=== PATIENT | female | born 1995 | race Caucasian/White ===

== ENCOUNTER 2017-03-06 19:40 | Emergency (ER) | payer OTHER ==
[~2017-03-06] VITALS: Ht 167.6 cm; Wt 100.0 kg
[~2017-03-06 19:40] MED LIST: PREN1CAP17 PO
[2017-03-06 19:42] VITALS: BP 132/74; PULSE 82; RESP 15; TEMP 98.3; O2SAT 100
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
[2017-03-06 21:59] LABS: BACTERIA, URINE RARE /hpf; BLOOD, URINE NEG (NEG); COMMENT (UR) CULT NOT INDICATED; CULTURE IF INDICATED CULT NOT INDICATED; GLUCOSE,URINE NEG (NEG); KETONE, URINE NEG (NEG); MUCUS URINE FEW /lpf (OCC); NITRITE,URINE NEG (NEG); PH, URINE 6.5 (5.0-8.5); SQUAMOUS EPITHELIAL CELL URINE 1 /hpf (0-5); URINE COLOR YELLOW (YELLW/STRAW)
[2017-03-06] MEDS ORDERED: KETOROLAC TROMETHAMINE 30 MG/ML (IVP) VIAL IV PUSH ONE (22:00)
[2017-03-06 22:15] LABS: AUTOMATED NEUTROPHIL # 4.3 TH/MM3 (1.8-7.7); BASOPHIL % 0.3 % (0.0-2.0); EOSINOPHIL # 0.1 TH/MM3 (0-0.4); EOSINOPHIL % 0.9 % (0.0-4.0); HEMATOCRIT 36.9 % (35.0-46.0); HEMO FLAGS DIFF FINAL; LYMPH % 31.7 % (9.0-44.0); LYMPHOCYTE # 2.3 TH/MM3 (1.0-4.8); MEAN CELL VOLUME 87.6 FL (80.0-100.0); MEAN CORPUSCULAR HEMOGLOBIN 28.8 PG (27.0-34.0); MEAN CORPUSCULAR HGB CONC 32.8 % (32.0-36.0); MONO % 7.2 % (0.0-8.0); NEUT % 59.9 % (16.0-70.0); PLATELET COUNT 173 TH/MM3 (150-450); RED BLOOD COUNT 4.21 MIL/MM3 (4.00-5.30); RED CELL DISTRIBUTION WIDTH 13.3 % (11.6-17.2); WHITE BLOOD COUNT 7.1 TH/MM3 (4.0-11.0)
[2017-03-06 22:41] LABS: ANION GAP 9 MEQ/L (5-15); AST (GOT) 17 U/L (16-38); BICARBONATE 22.8 MEQ/L (21.0-32.0); BLOOD UREA NITROGEN 6 MG/DL (7-18); CHLORIDE 108 MEQ/L (98-107); GLOMERULAR FILTRATION RATE 161 ML/MIN (>89); POTASSIUM 3.7 MEQ/L (3.5-5.1); SODIUM (NA) 140 MEQ/L (136-145)
[2017-03-06 22:43] LABS: ALT (GPT) 26 U/L (9-42)
[2017-03-06 23:00] LABS: ALKALINE PHOSPHATASE 67 U/L (45-117); BETA HCG QUANT 113181 MIU/ML (0-5); TOTAL BILIRUBIN ADULT 0.4 MG/DL (0.2-1.0)
--- NOTE | 2017-03-06 23:10 | RADRPT ---
EXAM DATE/TIME: 03/06/2017 21:47 [facility] COMPARISON: No previous studies available for comparison. INDICATIONS : Pelvic pain. LAB(S): Beta-hC MEDICAL HISTORY : . SURGICAL HISTORY : None. ENCOUNTER: Subsequent ACUITY: 1 day PAIN SCORE: 3/10 LOCATION: Bilateral pelvis MEASUREMENTS: UTERUS: 11.7 x 8.7 x 7.8 cm ENDOMETRIAL STRIPE: >20 mm RIGHT OVARY: 3.9 x 2.3 x 2.1 cm LEFT OVARY: 5.9 x 2.2 x 2.2 cm FREE FLUID: No CROWN RUMP LENGTH: 2.6 cm = 9 WKS 3 DAYS FHR: 183 BPM FINDINGS: There is a single viable intrauterine of 9 weeks and 3 days as measured by crown-rump lengt h. heart rate is 183 beats per minute. Uterus contains a probable fibroid measuring up to 5.5 c m in diameter. Multiple small areas of sub-cardiac hemorrhage are suspected measuring up to 2.5 x 1.1 x 0.6 cm. Ovaries unremarkable. No free fluid. CONCLUSION: 1. Viable intrauterine 9 weeks 3 days by crown-rump length. heart rate 183 beats per minute. 2. Uterine fibroid measuring up to 5.5 cm. 3. Several small subchorionic hemorrhages present. Antonino Bello MD on March 06, 2017 at 23:05 Board Certified Radiologist. This report was verified electronically.
[2017-03-06] MEDS ORDERED: MACR100C2 PO (23:19)
[2017-03-06] MEDS ORDERED: NITROFURANTOIN MONOHYD MACROCR 100 MG CAP PO ONE (23:30)
[2017-03-06 23:50] VITALS: BP 131/74
== END 2017-03-07 00:24 | disposition home or self-care (01) ==
LOC: NEPD 19:40
DX: O26.891 Other specified pregnancy related conditions, first trimester (principal); R82.71 Bacteriuria; Z3A.09 9 weeks gestation of pregnancy
CPT/HCPCS: 76700; 80053; 81001; 84702; 84703; 85025; 99285

== ENCOUNTER 2017-04-13 14:06 | Emergency (ER) | payer MEDICAID, OTHER ==
[~2017-04-13] VITALS: Ht 167.6 cm; Wt 100.0 kg
[~2017-04-13 14:06] MED LIST changes: +MACR100C2 PO
[2017-04-13 14:07] VITALS: BP 136/63; PULSE 100; RESP 20; TEMP 98.5; O2SAT 99
--- NOTE | 2017-04-13 16:34 | PD ---
HPI Chief Complaint: Related Problem Time Seen by Provider: 15:00 Travel History International Travel<30 days: No Contact w/Intl Traveler<30days: No Traveled to known affect area: No History of Present Illness HPI 21 y [id number] female presents to emergency department for evaluation of brown vaginal discharge and pelvic cramping for just over 1 week. She said the cramping is severe and occurs 'all the time' not relieved with Tylenol. Says she went to her rebeamer, Dr. Calabrese at [facility] in [place] for this issue 1 week ago and was diagnosed with a threatened . Pt had some blood work done and vaginal exam at that appointment. She does not know the results. Her last US was at the end of February here at [place]. Patient denies fever, chills, chest pain, short of breath, back pain, dysuria. PFSH Past Medical History Medical History: Denies Significant Hx Hx Anticoagulant Therapy: No Cardiovascular Problems: No Chemotherapy: No Cerebrovascular Accident: No Diabetes: No Diminished Hearing: No Respiratory: No Immunizations Current: Yes (SCHOOL SHOTS UTD.) ?: LMP: UNKNIOWN : 3 Para: 2 : 1 Past Surgical History Surgical History: No Previous Surgery Hysterectomy: No Social History Alcohol Use: No Tobacco Use: No Substance Use: No Allergies-Medications (Allergen,Severity, Reaction): Coded Allergies: No Known Allergies (Verified , 03/06/17) Reported Meds & Prescriptions Reported Meds & Active Scripts Active Prenate Pixie 10-0.6-0.4-200 mg ( W/O A W/ Fe Asparto G) 1 Cap Cap 1 Cap PO DAILY Review of Systems Except as stated in HPI: all other systems reviewed are Neg Physical Exam Narrative GENERAL: Well-developed well-nourished SKIN: Focused skin assessment warm/dry. HEAD: Atraumatic. Normocephalic. EYES: Pupils equal and round. No scleral icterus. No injection or drainage. ENT: No nasal bleeding or discharge. Mucous membranes pink and moist. NECK: Trachea midline. No JVD. No lymphadenopathy CARDIOVASCULAR: Regular rate and rhythm. No murmur appreciated. RESPIRATORY: No accessory muscle use. Clear to auscultation. Breath sounds equal bilaterally. GASTROINTESTINAL: Abdomen soft, nondistended. Hepatic and splenic margins not palpable. Mild tenderness to the adnexal and suprapubic area. GENITOURINARY: Normal external genitalia without lesions or erythema. Vaginal vault without blood. Brown discharge. Os closed, slit-shaped without active discharge. No cervical motion tenderness. Uterus nontender and nonenlarged. Bilateral adnexa mildly tender without masses. MUSCULOSKELETAL: No obvious deformities. No clubbing. No cyanosis. No edema. NEUROLOGICAL: Awake and alert. No obvious cranial nerve deficits. Motor grossly within normal limits. Normal speech. PSYCHIATRIC: Appropriate mood and affect; insight and judgment normal. Data Data Last Documented VS Vital Signs Date Time Temp Pulse Resp B/P (MAP) Pulse Ox O2 Delivery O2 Flow Rate FiO2 04/13/17 19:36 04/13/17 14:07 98.5 100 20 99 Room Air Orders Orders Heart Tones (04/13/17 16:15) Beta Hcg (Quant/Titer) (04/13/17 16:15) Gc And Chlamydia Pcr (04/13/17 16:15) Wet Prep Profile (04/13/17 16:15) Urinalysis - C+S If Indicated (04/13/17 16:15) Ed Urine Pregnancytest Poc (04/13/17 16:15) Ed Discharge Order (04/13/17 19:04) Labs Laboratory Tests Test 04/13/17 16:25 04/13/17 16:47 04/13/17 17:05 Clue Cells (Wet Prep) NONE SEEN Vaginal Trichomonas (Wet Prep) NONE SEEN Vaginal Yeast (Wet Prep) NONE SEEN Chlamydia trachomatis DNA (PCR) NOT DETECTED Neisseria gonorrhoeae DNA (PCR) NOT DETECTED Human Chorionic Gonadotropin, Quant 19704 MIU/ML Urine Color YELLOW Urine Turbidity HAZY Urine pH 7.0 Urine Specific [place] 1.007 Urine Protein NEG mg/dL Urine Glucose (UA) NEG mg/dL Urine Ketones NEG mg/dL Urine Occult Blood NEG Urine Nitrite NEG Urine Bilirubin NEG Urine Urobilinogen LESS THAN 2.0 MG/DL Urine Leukocyte Esterase NEG Urine RBC LESS THAN 1 /hpf Urine WBC LESS THAN 1 /hpf Microscopic Urinalysis Comment CULT NOT INDICATED MDM Medical Decision Making Medical Screen Exam Complete: Yes Emergency Medical Condition: Yes Differential Diagnosis Plan versus missed versus vaginal discharge versus chlamydia Narrative Course 21y [id number] female presents to emergency department for evaluation of brown vaginal discharge and pelvic cramping for just over 1 week. She is 15 weeks . She said the cramping is severe and occurs 'all the time' not relieved with Tylenol. Says she went to her rebeamer, Dr. Calabrese at [facility] in [place] for this issue 1 week ago and was diagnosed with a threatened . Pt had some blood work done and vaginal exam at that appointment. She does not know the results. Her last US was at the end of February here at [facility]. Patient denies fever, chills, chest pain, short of breath, back pain, dysuria. Last intercourse was approximately one week ago and is abstaining at the recommendation of her rebeamer. Her previous 2 pregnancies were without complication. Vaginal births. Physical exam demonstrates a closed cervical os, brown discharge. Labs within normal limits, GC chlamydia pending as of discharge. HCG elevated, consistent with status. Patient has threatened . I had an extensive discussion with pt regarding her status and that she needs to follow up with her rebeamer. Patient was tearful. Patient advised to return to ED if symptoms persist or worsen Diagnosis Primary Impression: Threatened Referrals: Senior Supply Chain Analyst Primary Care Physician Additional Instructions: Follow-up with your rebeamer within 2 days. Follow-up with your primary care physician within 2 days If your symptoms persist or worsen or return to the emergency department Continue Tylenol as needed Disposition: 01 DISCHARGE HOME Condition: Stable Gemma Brock Apr 13, 2017 16:34
[2017-04-13 17:42] LABS: BETA HCG QUANT 20387 MIU/ML (0-5)
[2017-04-13 18:00] LABS: BLOOD, URINE NEG (NEG); GLUCOSE,URINE NEG (NEG); KETONE, URINE NEG (NEG); NITRITE,URINE NEG (NEG); URINE COLOR YELLOW (YELLW/STRAW)
[2017-04-13 18:04] LABS: COMMENT (UR) CULT NOT INDICATED; CULTURE IF INDICATED CULT NOT INDICATED
[2017-04-13 20:03] LABS: CHLAMYDIA PCR NOT DETECTED (NOT DETECT); NEISSERIA PCR NOT DETECTED (NOT DETECT)
== END 2017-04-13 19:38 | disposition home or self-care (01) ==
LOC: NEPD 14:06
DX: O20.0 Threatened abortion (principal); Z3A.15 15 weeks gestation of pregnancy
CPT/HCPCS: 81001; 84702; 84703; 87210; 87491; 87591; 99284